=== PATIENT | female | born 1995 | race Caucasian/White ===

== ENCOUNTER 2022-09-20 10:53 | Emergency (ER) | payer MEDICAID, SELFPAY ==
[2022-09-20 12:04] VITALS: BP 114/68; PULSE 69; RESP 16; TEMP 36.6; O2SAT 100; BMI 26.2
[2022-09-20 13:27] LABS: MANUAL DIFF FLAG NO
[2022-09-20 13:29] LABS: Hematocrit 42.8 % (37.0-47.0); Hemoglobin 13.4 g/dl (12.0-16.0); Imm Gran Pct Auto 0.3 % (0.0-0.4); Lymphocytes Percent Auto 27.4 % (20-40); Mean Corpuscular HGB Conc 31.3 g/dl (31.0-35.0); Mean Corpuscular Hemoglobin 26.3 pg (27.0-33.0); Mean Corpuscular Volume 83.9 fL (80.0-98.0); Mean Platelet Volume 10.6 fL (9.4-12.3); Neutrophils Percent Auto 60.3 % (45-73); Platelet Count 342 X10*3/uL (160-400); Red Cell Distribution Width 13.2 % (11.0-16.0); White Blood Count 9.5 X10*3/uL (4.8-10.8)
[2022-09-20 13:30] LABS: Basophils Absolute Auto 0.1 X10*3/uL (0.0-0.2); Basophils Percent Auto 0.6 % (0-2); Eosinophils Absolute Auto 0.3 X10*3/uL (0.0-0.4); Eosinophils Percent Auto 3.1 % (0-4); Imm Gran Abs Auto 0.03 X10*3/uL (0.00-0.03); Lymphocytes Absolute Auto 2.6 X10*3/uL (1.2-4.9); Monocytes Absolute Auto 0.8 X10*3/uL (0.1-1.2); Monocytes Percent Auto 8.3 % (2-11); Neutrophils Absolute Auto 5.7 x10*3/uL (2.0-8.3)
[2022-09-20 13:44] LABS: COVID-19 Test Negative (Negative); IDNOW Serial# 55D5AD1C
[2022-09-20 13:57] LABS: Alanine Aminotransferase 22 U/L (0-31); Albumin Level 4.4 g/dL (3.5-5.0); Alkaline Phosphatase 85 U/L (39-117); Anion Gap 13 (12-20); Aspartate Amino Transferase 17 U/L (5-31); Bilirubin Total 0.4 mg/dL (0.0-1.0); Blood Urea Nitrogen 9 mg/dL (9-16); Calcium 9.4 mg/dL (8.4-10.2); Carbon Dioxide 25 mmol/L (22-29); Chloride 108 mmol/L (96-108); Creatinine Clr Calc Pharmacy 104.6; Estimated Glomerular Filt Rate > 60; Glucose Random 91 mg/dL (60-115); Lipase 27 U/L (8-78); Potassium 4.4 mmol/L (3.3-5.1); Sodium 142 mmol/L (135-145); Total Protein 7.1 g/dL (6.5-8.0)
--- OUTSIDE RECORDS SUMMARY | 2022-09-20 19:47 | XMS_ITS | Continuity of Care Document ---
:1995 Author Organization [facility] Address [address] [place] [id number]- Care Team Providers Name Role Phone Not on Staff, PCP Primary Care Physician Unavailable Encounter [facility] [place] Date(s): 10/27/21 - 11/26/[address] [address] Allergies, Adverse Reactions, Alerts Substance Reaction Severity Status NKA Active Immunizations Given and Recorded Vaccine Date Status Refusal Reason tetanus/diphtheria/pertussis, acel(Tdap) 12/15/14 Given Medications ferrous sulfate 325 mg oral tablet 1 tablet = 325 mg, By Mouth, 2 times a day, # 60 tablet, 2 Refills, Maintenance, 05/10/17 9:06:42, Tablet Start Date: 05/10/17 Stop Date: 08/08/17 Status: OrderedInjectafer = 750 mg, IV Infusion, IRON INFUSIONS Given by hematology, 0 Refills, Maintenance, 01/07/18 10:48:36 Start Date: 01/07/18 Status: Ordered Problem List Condition Effective Dates Status Health Status Informant 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
--- OUTSIDE RECORDS SUMMARY | 2022-09-20 19:47 | XMS_ITS | Continuity of Care Document ---
:1995 Author Organization [facility] Address [address] [place] [address]- Care Team Providers Name Role Phone Not on Staff, PCP Primary Care Physician Unavailable Encounter [facility] Date(s): 01/23/22 - 02/22/[address] [address]- Attending Physician: Carlos Enrique Wolfe Admitting Physician: Carlos Enrique Wolfe Referring Physician: AdmtrCarlos Enrique Allergies, Adverse Reactions, Alerts No Known Allergies Immunizations Given and Recorded Vaccine Date Status [...]
--- OUTSIDE RECORDS SUMMARY | 2022-09-20 19:47 | XMS_ITS | Continuity of Care Document ---
:1995 Author Organization [facility] Address [address] [place] [address]- Care Team Providers Name Role Phone Not on Staff, PCP Primary Care Physician Unavailable Encounter [facility] [place] Date(s): 12/05/21 - 06/26/22 [facility] [address] [place] [address]- Discharge Disposition: A-D/C Home Attending Physician: Jaky Wilson MD Admitting Physician: Jaky Wilson MD Referring Physician: Ana Rutherford MD Allergies, Adverse Reactions, Alerts No Known Allergies Immunizations Given and Recorded Vaccine Date Status Refusal Reason Human Papillomavirus Vaccine 04/03/22 Given tetanus/diphtheria/pertussis, acel(Tdap) 12/15/14 Given Medications Injectafer = 750 mg, IV Infusion, IRON INFUSIONS Given by hematology, 0 Refills, Maintenance, 01/07/18 10:48:36 Start Date: 01/07/18 Status: Ordered Problem List Condition Effective Dates Status Health Status Informant JOE III (cervical intraepithelial Active neoplasia III)(Confirmed) S/P tubal ligation(Confirmed) Active Iron deficiency anemia(Confirmed) Active Vital Signs Most recent to oldest [Reference Range]: 1 2 Height 151 cm 151 cm (03/06/22 10:34 AM) (12/06/21 8:54 AM) Weight 65.5 kg 66.3 kg (03/06/22 10:34 AM) (12/06/21 8:54 AM) Pulse Rate [55-90 bpm] 68 bpm 81 bpm (03/06/22 10:34 AM) (12/06/21 8:54 AM) Body Mass Index [18.5-24.99] 28.73 29.08 *H* *H* (03/06/22 10:34 AM) (12/06/21 8:54 AM) Blood Pressure [90-138/55-84 mm Hg] 108/65 mm Hg 120/ 68 mm Hg (03/06/22 10:34 AM) (12/06/21 8:54 AM) Temperature [96.8-100.4 DegF] 96.7 DegF 98.3 DegF *L* (12/06/21 8:54 AM) (03/06/22 10:34 AM) Blood pressure sites Arm, left Arm, right (03/06/22 10:34 AM) (12/06/21 8:54 AM) Temperature Route Temporal Temporal (03/06/22 10:34 AM) (12/06/21 8:54 AM) Dry Weight 65.5 kg 66.3 kg (03/06/22 10:34 AM) (12/06/21 8:54 AM) Weight Obtained Via Standing scale Standing scale (03/06/22 10:34 AM) (12/06/21 8:54 AM) Dry Weight Obtained Via Standing scale Standing scale (03/06/22 10:34 AM) (12/06/21 8:54 AM) Social History Social History Type Response Smoking Status Never smoker entered on: 02/03/15 Sex
--- OUTSIDE RECORDS SUMMARY | 2022-09-20 19:47 | XMS_ITS | Continuity of Care Document ---
:1995 Author Organization [facility] Address [address] [place] [address]- Care Team Providers Name Role Phone Not on Staff, PCP Primary Care Physician Unavailable Encounter [facility] Date(s): 12/05/21 - 01/04/22 [facility] [address] [place] [address] Attending Physician: Carlos Enrique Wolfe Admitting Physician: Carlos Enrique Wolfe Referring Physician: trCarlos Enrique Allergies, Adverse Reactions, Alerts No Known [...]
--- OUTSIDE RECORDS SUMMARY | 2022-09-20 19:47 | XMS_ITS | Continuity of Care Document ---
:1995 Author Organization [facility] Address [address] [place] [address]- Care Team Providers Name Role Phone Not on Staff, PCP Primary Care Physician Unavailable Encounter [facility] Date(s): 04/03/22 - 05/03/[address] [address] Attending Physician: Carlos Enrique Wolfe Admitting Physician: [...]
--- OUTSIDE RECORDS SUMMARY | 2022-09-20 19:47 | XMS_ITS ---
:1995 Author Care Team Providers Name Role Phone TRACIE PENA MD Referring Provider [phone] BRUNO PACHECO CN ([facility]) Primary Care P rovider [phone] GAIL ECHAVARRIA MD OTHER [phone] Allergies Code Code System Name Reaction Severity Status Onset NKDA ? Medications Name Status Start Date Stop Date ? ? iron Active ? Not available Vitamin Active ? Not available Problems Name Status Onset Date Source ? Hereditary Disease in Family Possibly Affecting Fetus Active ? Encounter Known or Suspected Abnormality Affecting Management of Act michele ? Encounter Mother Procedures None recorded. Results Lab Results None recorded. Past Encounters None recorded. Social History Tobacco Smoking Status Never Smoker Vaccine List None recorded. Plan of Care Reminders Provider Appointments None recorded. ? ? Lab None recorded. ? ? Referral None recorded. ? ? Procedures None recorded. ? ? Surgeries None recorded. ? ? Imaging None recorded. ? ? Vitals None recorded.
--- OUTSIDE RECORDS SUMMARY | 2022-09-20 19:47 | XMS_ITS | Continuity of Care Document ---
:1995 Author Organization [facility] Address [address] [place] [address]- Care Team Providers Name Role Phone Not on Staff, PCP Primary Care Physician Unavailable Encounter [facility] Date(s): 12/29/21 - 02/22/[address] [address]- Attending Physician: Not on Staff, Attending MD Allergies, Adverse Reactions, Alerts No Known [...]
--- OUTSIDE RECORDS SUMMARY | 2022-09-20 19:47 | XMS_ITS | Continuity of Care Document ---
:1995 Author Organization [facility] Address [address] [place] [address]- Care Team Providers Name Role Phone Not on Staff, PCP Primary Care Physician Unavailable Encounter [facility] Date(s): 11/16/21 - 01/04/[address] [address]- Attending Physician: Not on Staff, Attending MD [...]
== END 2022-09-20 20:05 | disposition left against medical advice (07) ==
PROVIDERS: Emergency Provider Emergency Medicine
DX: R05.9 Cough, unspecified (principal); R50.9 Fever, unspecified; Z79.899 Other long term (current) drug therapy; Z20.822 Contact with and (suspected) exposure to COVID-19
CPT/HCPCS: 36415; 80053; 83690; 85025; 87635; 99281; 99283

== ENCOUNTER 2022-09-29 12:51 | Emergency (ER) | payer MEDICAID, SELFPAY ==
--- NOTE | ~2022-09-29 | CT_ITS ---
EXAMINATION: CT HEAD WITHOUT CONTRAST CLINICAL INFORMATION: Left-sided headache after head strike. COMPARISON: None TECHNIQUE: Contiguous axial imaging was performed from the skull base to vertex without intravenous administration of contrast. Coronal and sagittal reformatted images were obtained. This CT examination was performed using dose optimization techniques as appropriate, variously including the following: *Automated exposure control *Adjustment of mA and/or kV according to patient size (this includes techniques or standardized protocols for targeted exams where dose is matched to indication/reason for exam; i.e. extremities or head) *Use of iterative reconstruction technique DLP: 650 mGy-cm FINDINGS: The cortical sulci are normal. The lateral ventricles are symmetrical. The third and fourth ventricles are in their normal midline position. The basilar and prepontine cisterns are unremarkable. There is no acute intra or extracerebral abnormality. There is no mass effect or midline shift. Sections through the bony calvarium are unremarkable. The paranasal sinuses show mild mucosal thickening in the right sphenoid sinus. The bony orbits and orbital contents are unremarkable. CT/CT head/brain wo IV con IMPRESSION: No acute intracranial pathology.
[2022-09-29 13:00] VITALS: BP 100/61; PULSE 64; RESP 16; TEMP 36.7; O2SAT 100
[2022-09-29 13:03] VITALS: BP 100/61; BP 102/74; PULSE 58; PULSE 73; RESP 16; TEMP 36.7; O2SAT 98; BMI 25.4
[2022-09-29 13:08] LABS: Glucose, Whole Blood 66 mg/dL (60-115)
--- NOTE | 2022-09-29 13:19 | ED.SYNCOPE ---
HPI - Syncope General Chief Complaint: Syncope <Tana TannerMARY - Last Filed: 09/29/22 16:22> Stated Complaint: syncopal episode <Tana TannerMARY - Last Filed: 09/29/22 16:22> Time Seen by Provider: 09/29/22 13:07 <Tana ValadezMARY cherry - Last Filed: 09/29/22 16:22> Source: patient <Tana TannerMARY - Last Filed: 09/29/22 16:22> Mode of arrival: EMS <Tana TannerMARY - Last Filed: 09/29/22 16:22> Limitations: no limitations <Tana TannerMARY - Last Filed: 09/29/22 16:22> History of Present Illness HPI narrative: Patient is a 27-year-old female with a past medical history of anemia who presents to the ED today via EMS for syncopal episode. She states she was standing in line at a restaurant waiting to order food when she was beginning to feel slightly dizzy and lightheaded. When standing at the counter a few minutes later she suddenly developed palpitations and became very diaphoretic then lost consciousness. She reports awaking on the floor surrounded by witnesses who state she was unconscious for about 10 seconds and that she hit the left side of her head when she fell. EMS was then called and patient was transported here. Currently she complains of a left-sided headache and some dizziness. She denies a previous history of syncopal episode in the past or history of seizure disorder. Of note, she does report that she had not eaten yet for the day prior to this episode. She denies any fevers, chills, visual changes, current palpitations, chest pain, N/V/D, urinary incontinence, and weakness. She reports no recent illness aside from testing positive for COVID last month. <Tana ValadezMARY cherry - Last Filed: 09/29/22 16:22> Related Data Allergies/Adverse Reactions: Allergies Allergy/AdvReac Type Severity Reaction Status Date / Time No Known Allergies Allergy Verified 09/20/22 12:04 [No Known Allergies*] <Tana Simmonsarianna Tanner CNP - Last Filed: 09/29/22 16:22> Review of Systems Review of Systems: Constitutional : Positive syncope. No Fever, No Chills, No Fatigue ENT/Mouth : No sore throat, No Rhinorrhea Eyes: No Eye Pain, No Swelling, No Redness Cardiovascular : No Chest Pain, No SOB, No Dyspnea on Exertion Respiratory : No Cough, No Sputum Gastrointestinal : No Nausea, No Vomiting, No Diarrhea, No abdominal Pain Genitourinary : No Dysuria, No Urinary Frequency, No Hematuria, Musculoskeletal : No joint pain, No Myalgias, No Joint Swelling Skin : No Skin Lesions, No rash Neuro : Positive headache, Positive dizziness. No Weakness, No Numbness. Psych : No Anxiety/Panic, No Depression Heme/Lymph: No Bruising, No Bleeding, No Lymphadenopathy Endocrine : No Polyuria, No Polydipsia <Tana Tanner CNP - Last Filed: 09/29/22 16:22> Yes all other systems are reviewed and are negative <Tana Tanner CNP - Last Filed: 09/29/22 16:22> [facility] Past Medical History Attestation statement: The following information was validated with the patient. <Tana Tanner CNP - Last Filed: 09/29/22 16:22> Social History Social History: Social History Advance Directives: No Advance Directives Information Provided: No <Tana Tanner CNP - Last Filed: 09/29/22 16:22> Physical Exam Vital Signs: Vital Signs: Last Vital Signs Temp 98.0 F 09/29/22 13:03 Pulse 67 09/29/22 14:20 Resp 16 09/29/22 13:03 BP 107/64 09/29/22 14:20 Pulse Ox 98 09/29/22 13:03 O2 Del Method 09/29/22 13:03 BMI result Body Mass Index 25.4 Vital signs have been reviewed as normal and appeared to be correct. Blood pressure normal.? Heart rate normal.? Respiration rate normal. Temperature normal.? Oxygen saturation normal. <Tana Tanner CNP - Last Filed: 09/29/22 16:22> Vital Signs: Last Vital Signs Temp 98.0 F 09/29/22 13:03 Pulse 67 09/29/22 14:20 Resp 16 09/29/22 13:03 BP 107/64 09/29/22 14:20 Pulse Ox 98 09/29/22 13:03 O2 Del Method 09/29/22 13:03 BMI result Body Mass Index 25.4 <Josie Londono NP - Last Filed: 09/29/22 17:42> Appearance: Alert.?Oriented to person, place and time. No acute distress.?Normal affect. Head: Normocephalic, atraumatic. No head tenderness.? Eyes: Sclera white, conjunctiva pink. PERRL, 3 mm bilaterally. Visual lemus full to confrontation, EOMi. Patient endorses some mild exacerbation of dizziness during performance of EOMs.?No Nystagmus. Ears: Bilateral ear canals clear, TM visible with good cone of light.? Nose: Nasal mucosa pink and moist with midline septum, nares patent bilaterally.? Mouth/ Throat: Oral mucosa pink and moist without lesions. Pharynx normal Neck: Normal inspection.? Neck supple.?? CVS: Heart sounds normal. Normal heart rate and rhythm.? Pulses normal.?? Respiratory: No respiratory distress.? Lung sounds clear to auscultation bilaterally?? Abdomen: Soft and non-tender. Normoactive bowel sounds. No pulsatile mass.?? Skin: Skin warm and dry.? Normal skin color.? Normal skin turgor.?? Extremities: No lower extremity edema. Neuro: No focal neurological deficit observed, CN II-XII intact, normal sensory observed, normal coordination observed. Level of consciousness: Appropriate for age. Motor strength: right upper extremity 5 /5, left upper extremity 5 /5, right lower extremity 5 /5, left lower extremity 5 /5.?Speech: Normal, Gait: Normal, Qxlrug-[id number] test: Normal, Xdho-vd-drgd test: Normal. <Tana Tanner CNP - Last Filed: 09/29/22 16:22> Course Course Course Narrative: Patient is a 27-year-old female with a past medical history of anemia presents to the ED today via EMS for syncopal episode. Patient endorse some exacerbation of dizziness when EOMs were performed, exam otherwise benign. No focal neuro deficits. Nurse performed POC upon patient arrival which was 66. Patient placed on tele monitoring, currently NSR at 73 bpm. Will obtain CBC, CMP, Mg, troponin and EKG, UA, hCG, COVID. Will obtain head CT due to new episode of syncope and positive head strike. Orthostatics ordered. Fluid bolus of NS to be given once orthostatics are assessed. <Tana Tanner CNP - Last Filed: 09/29/22 16:22> Reevaluation(s) Reevaluation #1: Orthostatic vital signs within normal limits. Troponin <3.5, EKG reveals normal sinus rhythm with an incomplete right bundle-branch block which has been seen on prior EKG in 2019, no acute ischemic findings, is not appear consistent with ACS. She has no tachycardia, hypoxia, or tachypnea, PERC negative, unlikely pulmonary embolism, no prior DVT/PE, personal history of cancer, no anticoagulant usage, no tachycardia tachypnea or hypoxia. At this time patient was able to ambulate with slow steady gait to the restroom without assistance. CT of the head remains pending at this time. Patient signed out to Evelia Londono NP <Tana Tanner CNP - Last Filed: 09/29/22 16:22> Time: 16:03 <Tana Tanner CNP - Last Filed: 09/29/22 16:22> Reevaluation #2: CT scan of head negative for acute findings requiring emergent intervention. Plan of care is to discharge home and have outpatient follow-up with primary care provider as needed. <Josie Londono NP - Last Filed: 09/29/22 17:42> Time: 17:40 <Josie Londono NP - Last Filed: 09/29/22 17:42> MDM - Syncope Medical Records Attestation: I reviewed the patient's medical records. <Tana Tanner CNP - Last Filed: 09/29/22 16:22> Lab Data Attestation: I reviewed the patient's lab results. <Tana Tanner CNP - Last Filed: 09/29/22 16:22> Result diagrams: : 09/29/22 14:28 09/29/22 14:28 <Tana Tanner CNP - Last Filed: 09/29/22 16:22> Labs: Lab Results 09/29/22 09/29/22 09/29/22 Range/Units 13:04 14:28 14:28 WBC 12.9 H (4.8-10.8) X10*3/uL RBC 4.92 (4.20-5.50) X10*6/uL Hgb 13.1 (12.0-16.0) g/dl Hct 40.6 (37.0-47.0) % MCV 82.5 (80.0-98.0) fL MCH 26.6 L (27.0-33.0) pg MCHC 32.3 (31.0-35.0) g/dl RDW 13.3 (11.0-16.0) % Plt Count 303 (160-400) X10*3/uL MPV 11.1 (9.4-12.3) fL Immature Gran % (Auto) 0.3 (0.0-0.4) % Neut % (Auto) 80.1 H (45-73) % Lymph % (Auto) 13.2 L (20-40) % [place] % (Auto) 5.2 (2-11) % Eos % (Auto) 0.9 (0-4) % Baso % (Auto) 0.3 (0-2) % Lymph # (Auto) 1.7 (1.2-4.9) X10*3/uL [place] # (Auto) 0.7 (0.1-1.2) X10*3/uL Eos # (Auto) 0.1 (0.0-0.4) X10*3/uL Baso # (Auto) 0.0 (0.0-0.2) X10*3/uL Abs Immat Gran (auto) 0.04 H (0.00-0.03) X10*3/uL Absolute Neuts (auto) 10.3 H (2.0-8.3) x10*3/uL Absolute Nucleated RBC 0.000 (0.0-0.012) X10*3/uL Nucleated RBC % (auto) 0.0 (0.0-0.2) /100WBC Sodium 140 (135-145) mmol/L Potassium 4.2 (3.3-5.1) mmol/L Chloride 106 (96-108) mmol/L Carbon Dioxide 23 (22-29) mmol/L Anion Gap 15 (12-20) BUN 10 (9-16) mg/dL Creatinine 0.63 (0.5-1.4) mg/dL Estim Creat Clear Calc 101.4 Estimated GFR > 60 POC Glucose 66 (60-115) mg/dL Random Glucose 82 (60-115) mg/dL Calcium 9.5 (8.4-10.2) mg/dL Magnesium 2.1 (1.6-2.6) mg/dL Total Bilirubin 1.2 H (0.0-1.0) mg/dL AST 16 (5-31) U/L ALT 15 (0-31) U/L Alkaline Phosphatase 84 (39-117) U/L Troponin I High Sens (<3.5-17.0) ng/L Total Protein 7.3 (6.5-8.0) g/dL Albumin 4.5 (3.5-5.0) g/dL Beta HCG, Quant < 2 mIU/mL Urine Color Urine Appearance Urine pH (5.0-9.0) Ur Specific [place] (1.005-1.025) Urine Protein (Neg-Trace) mg/dL Urine Glucose (UA) (Negative) mg/dL Urine Ketones (Negative) mg/dL Urine Blood (Negative) Urine Nitrite (Negative) Ur Leukocyte Esterase (Negative) Urine Test (NEGATIVE) COVID-19 (SUE) (Negative) COVID-19 Clin Com 09/29/22 09/29/22 09/29/22 Range/Units 14:28 14:33 15:59 WBC (4.8-10.8) X10*3/uL RBC (4.20-5.50) X10*6/uL Hgb (12.0-16.0) g/dl Hct (37.0-47.0) % MCV (80.0-98.0) fL MCH (27.0-33.0) pg MCHC (31.0-35.0) g/dl RDW (11.0-16.0) % Plt Count (160-400) X10*3/uL MPV (9.4-12.3) fL Immature Gran % (Auto) (0.0-0.4) % Neut % (Auto) (45-73) % Lymph % (Auto) (20-40) % [place] % (Auto) (2-11) % Eos % (Auto) (0-4) % Baso % (Auto) (0-2) % Lymph # (Auto) (1.2-4.9) X10*3/uL [place] # (Auto) (0.1-1.2) X10*3/uL Eos # (Auto) (0.0-0.4) X10*3/uL Baso # (Auto) (0.0-0.2) X10*3/uL Abs Immat Gran (auto) (0.00-0.03) X10*3/uL Absolute Neuts (auto) (2.0-8.3) x10*3/uL Absolute Nucleated RBC (0.0-0.012) X10*3/uL Nucleated RBC % (auto) (0.0-0.2) /100WBC Sodium (135-145) mmol/L Potassium (3.3-5.1) mmol/L Chloride (96-108) mmol/L Carbon Dioxide (22-29) mmol/L Anion Gap (12-20) BUN (9-16) mg/dL Creatinine (0.5-1.4) mg/dL Estim Creat Clear Calc Estimated GFR POC Glucose (60-115) mg/dL Random Glucose (60-115) mg/dL Calcium (8.4-10.2) mg/dL Magnesium (1.6-2.6) mg/dL Total Bilirubin (0.0-1.0) mg/dL AST (5-31) U/L ALT (0-31) U/L Alkaline Phosphatase (39-117) U/L Troponin I High Sens < 3.5 (<3.5-17.0) ng/L Total Protein (6.5-8.0) g/dL Albumin (3.5-5.0) g/dL Beta HCG, Quant mIU/mL Urine Color Yellow Urine Appearance Clear Urine pH 7.0 (5.0-9.0) Ur Specific [place] 1.015 (1.005-1.025) Urine Protein Negative (Neg-Trace) mg/dL Urine Glucose (UA) Negative (Negative) mg/dL Urine Ketones 15 (Negative) mg/dL Urine Blood Negative (Negative) Urine Nitrite Negative (Negative) Ur Leukocyte Esterase Negative (Negative) Urine Test (NEGATIVE) COVID-19 (SUE) Negative (Negative) COVID-19 Clin Com See Note 09/29/22 Range/Units 15:59 WBC (4.8-10.8) X10*3/uL RBC (4.20-5.50) X10*6/uL Hgb (12.0-16.0) g/dl Hct (37.0-47.0) % MCV (80.0-98.0) fL MCH (27.0-33.0) pg MCHC (31.0-35.0) g/dl RDW (11.0-16.0) % Plt Count (160-400) X10*3/uL MPV (9.4-12.3) fL Immature Gran % (Auto) (0.0-0.4) % Neut % (Auto) (45-73) % Lymph % (Auto) (20-40) % [place] % (Auto) (2-11) % Eos % (Auto) (0-4) % Baso % (Auto) (0-2) % Lymph # (Auto) (1.2-4.9) X10*3/uL [place] # (Auto) (0.1-1.2) X10*3/uL Eos # (Auto) (0.0-0.4) X10*3/uL Baso # (Auto) (0.0-0.2) X10*3/uL Abs Immat Gran (auto) (0.00-0.03) X10*3/uL Absolute Neuts (auto) (2.0-8.3) x10*3/uL Absolute Nucleated RBC (0.0-0.012) X10*3/uL Nucleated RBC % (auto) (0.0-0.2) /100WBC Sodium (135-145) mmol/L Potassium (3.3-5.1) mmol/L Chloride (96-108) mmol/L Carbon Dioxide (22-29) mmol/L Anion Gap (12-20) BUN (9-16) mg/dL Creatinine (0.5-1.4) mg/dL Estim Creat Clear Calc Estimated GFR POC Glucose (60-115) mg/dL Random Glucose (60-115) mg/dL Calcium (8.4-10.2) mg/dL Magnesium (1.6-2.6) mg/dL Total Bilirubin (0.0-1.0) mg/dL AST (5-31) U/L ALT (0-31) U/L Alkaline Phosphatase (39-117) U/L Troponin I High Sens (<3.5-17.0) ng/L Total Protein (6.5-8.0) g/dL Albumin (3.5-5.0) g/dL Beta HCG, Quant mIU/mL Urine Color Urine Appearance Urine pH (5.0-9.0) Ur Specific [place] (1.005-1.025) Urine Protein (Neg-Trace) mg/dL Urine Glucose (UA) (Negative) mg/dL Urine Ketones (Negative) mg/dL Urine Blood (Negative) Urine Nitrite (Negative) Ur Leukocyte Esterase (Negative) Urine Test NEGATIVE (NEGATIVE) COVID-19 (SUE) (Negative) COVID-19 Clin Com <Tana Tanner CNP - Last Filed: 09/29/22 16:22> Lab Results 09/29/22 09/29/22 09/29/22 Range/Units 13:04 14:28 14:28 WBC 12.9 H (4.8-10.8) X10*3/uL RBC 4.92 (4.20-5.50) X10*6/uL Hgb 13.1 (12.0-16.0) g/dl Hct 40.6 (37.0-47.0) % MCV 82.5 (80.0-98.0) fL MCH 26.6 L (27.0-33.0) pg MCHC 32.3 (31.0-35.0) g/dl RDW 13.3 (11.0-16.0) % Plt Count 303 (160-400) X10*3/uL MPV 11.1 (9.4-12.3) fL Immature Gran % (Auto) 0.3 (0.0-0.4) % Neut % (Auto) 80.1 H (45-73) % Lymph % (Auto) 13.2 L (20-40) % [place] % (Auto) 5.2 (2-11) % Eos % (Auto) 0.9 (0-4) % Baso % (Auto) 0.3 (0-2) % Lymph # (Auto) 1.7 (1.2-4.9) X10*3/uL [place] # (Auto) 0.7 (0.1-1.2) X10*3/uL Eos # (Auto) 0.1 (0.0-0.4) X10*3/uL Baso # (Auto) 0.0 (0.0-0.2) X10*3/uL Abs Immat Gran (auto) 0.04 H (0.00-0.03) X10*3/uL Absolute Neuts (auto) 10.3 H (2.0-8.3) x10*3/uL Absolute Nucleated RBC 0.000 (0.0-0.012) X10*3/uL Nucleated RBC % (auto) 0.0 (0.0-0.2) /100WBC Sodium 140 (135-145) mmol/L Potassium 4.2 (3.3-5.1) mmol/L Chloride 106 (96-108) mmol/L Carbon Dioxide 23 (22-29) mmol/L Anion Gap 15 (12-20) BUN 10 (9-16) mg/dL Creatinine 0.63 (0.5-1.4) mg/dL Estim Creat Clear Calc 101.4 Estimated GFR > 60 POC Glucose 66 (60-115) mg/dL Random Glucose 82 (60-115) mg/dL Calcium 9.5 (8.4-10.2) mg/dL Magnesium 2.1 (1.6-2.6) mg/dL Total Bilirubin 1.2 H (0.0-1.0) mg/dL AST 16 (5-31) U/L ALT 15 (0-31) U/L Alkaline Phosphatase 84 (39-117) U/L Troponin I High Sens (<3.5-17.0) ng/L Total Protein 7.3 (6.5-8.0) g/dL Albumin 4.5 (3.5-5.0) g/dL Beta HCG, Quant < 2 mIU/mL Urine Color Urine Appearance Urine pH (5.0-9.0) Ur Specific [place] (1.005-1.025) Urine Protein (Neg-Trace) mg/dL Urine Glucose (UA) (Negative) mg/dL Urine Ketones (Negative) mg/dL Urine Blood (Negative) Urine Nitrite (Negative) Ur Leukocyte Esterase (Negative) Urine Test (NEGATIVE) COVID-19 (SUE) (Negative) COVID-19 Clin Com 09/29/22 09/29/22 09/29/22 Range/Units 14:28 14:33 15:59 WBC (4.8-10.8) X10*3/uL RBC (4.20-5.50) X10*6/uL Hgb (12.0-16.0) g/dl Hct (37.0-47.0) % MCV (80.0-98.0) fL MCH (27.0-33.0) pg MCHC (31.0-35.0) g/dl RDW (11.0-16.0) % Plt Count (160-400) X10*3/uL MPV (9.4-12.3) fL Immature Gran % (Auto) (0.0-0.4) % Neut % (Auto) (45-73) % Lymph % (Auto) (20-40) % [place] % (Auto) (2-11) % Eos % (Auto) (0-4) % Baso % (Auto) (0-2) % Lymph # (Auto) (1.2-4.9) X10*3/uL [place] # (Auto) (0.1-1.2) X10*3/uL Eos # (Auto) (0.0-0.4) X10*3/uL Baso # (Auto) (0.0-0.2) X10*3/uL Abs Immat Gran (auto) (0.00-0.03) X10*3/uL Absolute Neuts (auto) (2.0-8.3) x10*3/uL Absolute Nucleated RBC (0.0-0.012) X10*3/uL Nucleated RBC % (auto) (0.0-0.2) /100WBC Sodium (135-145) mmol/L Potassium (3.3-5.1) mmol/L Chloride (96-108) mmol/L Carbon Dioxide (22-29) mmol/L Anion Gap (12-20) BUN (9-16) mg/dL Creatinine (0.5-1.4) mg/dL Estim Creat Clear Calc Estimated GFR POC Glucose (60-115) mg/dL Random Glucose (60-115) mg/dL Calcium (8.4-10.2) mg/dL Magnesium (1.6-2.6) mg/dL Total Bilirubin (0.0-1.0) mg/dL AST (5-31) U/L ALT (0-31) U/L Alkaline Phosphatase (39-117) U/L Troponin I High Sens < 3.5 (<3.5-17.0) ng/L Total Protein (6.5-8.0) g/dL Albumin (3.5-5.0) g/dL Beta HCG, Quant mIU/mL Urine Color Yellow Urine Appearance Clear Urine pH 7.0 (5.0-9.0) Ur Specific [place] 1.015 (1.005-1.025) Urine Protein Negative (Neg-Trace) mg/dL Urine Glucose (UA) Negative (Negative) mg/dL Urine Ketones 15 (Negative) mg/dL Urine Blood Negative (Negative) Urine Nitrite Negative (Negative) Ur Leukocyte Esterase Negative (Negative) Urine Test (NEGATIVE) COVID-19 (SUE) Negative (Negative) COVID-19 Clin Com See Note 09/29/22 Range/Units 15:59 WBC (4.8-10.8) X10*3/uL RBC (4.20-5.50) X10*6/uL Hgb (12.0-16.0) g/dl Hct (37.0-47.0) % MCV (80.0-98.0) fL MCH (27.0-33.0) pg MCHC (31.0-35.0) g/dl RDW (11.0-16.0) % Plt Count (160-400) X10*3/uL MPV (9.4-12.3) fL Immature Gran % (Auto) (0.0-0.4) % Neut % (Auto) (45-73) % Lymph % (Auto) (20-40) % [place] % (Auto) (2-11) % Eos % (Auto) (0-4) % Baso % (Auto) (0-2) % Lymph # (Auto) (1.2-4.9) X10*3/uL [place] # (Auto) (0.1-1.2) X10*3/uL Eos # (Auto) (0.0-0.4) X10*3/uL Baso # (Auto) (0.0-0.2) X10*3/uL Abs Immat Gran (auto) (0.00-0.03) X10*3/uL Absolute Neuts (auto) (2.0-8.3) x10*3/uL Absolute Nucleated RBC (0.0-0.012) X10*3/uL Nucleated RBC % (auto) (0.0-0.2) /100WBC Sodium (135-145) mmol/L Potassium (3.3-5.1) mmol/L Chloride (96-108) mmol/L Carbon Dioxide (22-29) mmol/L Anion Gap (12-20) BUN (9-16) mg/dL Creatinine (0.5-1.4) mg/dL Estim Creat Clear Calc Estimated GFR POC Glucose (60-115) mg/dL Random Glucose (60-115) mg/dL Calcium (8.4-10.2) mg/dL Magnesium (1.6-2.6) mg/dL Total Bilirubin (0.0-1.0) mg/dL AST (5-31) U/L ALT (0-31) U/L Alkaline Phosphatase (39-117) U/L Troponin I High Sens (<3.5-17.0) ng/L Total Protein (6.5-8.0) g/dL Albumin (3.5-5.0) g/dL Beta HCG, Quant mIU/mL Urine Color Urine Appearance Urine pH (5.0-9.0) Ur Specific [place] (1.005-1.025) Urine Protein (Neg-Trace) mg/dL Urine Glucose (UA) (Negative) mg/dL Urine Ketones (Negative) mg/dL Urine Blood (Negative) Urine Nitrite (Negative) Ur Leukocyte Esterase (Negative) Urine Test NEGATIVE (NEGATIVE) COVID-19 (SUE) (Negative) COVID-19 Clin Com <Josie Londono NP - Last Filed: 09/29/22 17:42> Imaging Data CT scan - head: Attestation: I personally reviewed and interpreted this imaging study as follows: <Josie Londono NP - Last Filed: 09/29/22 17:42> Radiologist's impression: FINDINGS: The cortical sulci are normal. The lateral ventricles are symmetrical. The third and fourth ventricles are in their normal midline position. The basilar and prepontine cisterns are unremarkable. There is no acute intra or extracerebral abnormality. There is no mass effect or midline shift. Sections through the bony calvarium are unremarkable. The paranasal sinuses show mild mucosal thickening in the right sphenoid sinus. The bony orbits and orbital contents are unremarkable. CT/CT head/brain wo IV con IMPRESSION: No acute intracranial pathology. ? <Josie Londono NP - Last Filed: 09/29/22 17:42> ECG Data Attestation: I personally reviewed and interpreted this ECG as follows: <Tana Tanner CNP - Last Filed: 09/29/22 16:22> ECG interpretation date: 09/29/22 <Tana Tanner CNP - Last Filed: 09/29/22 16:22> Prior ECG tracings: available for review <Tana Tanner CNP - Last Filed: 09/29/22 16:22> Interpretation: Rate: 65 Rhythm:? Normal sinus rhythm, incomplete right bundle-branch block which has been seen on prior EKG in 2019 [place]:? Normal Normal P waves.? Normal JUD[place].?? Normal QRS complex.?? ST T wave :??No ST elevation, no ST depression, no T-wave inversion qTC: 426 prior studies:? April 2019 The study has been interpreted contemporaneously by me. <Tana Tanner CNP - Last Filed: 09/29/22 16:22> Discharge Plan Discharge Clinical Impression: Syncope <Tana Tanner CNP - Last Filed: 09/29/22 16:22> Patient Disposition: Home, Self-Care <Tana Tanner CNP - Last Filed: 09/29/22 16:22> Instructions: Syncope (ED) <Tana Tanner CNP - Last Filed: 09/29/22 16:22> Additional Instructions: You were evaluated for syncopal episode. Her lab values are unremarkable. CT scan of head and neck are negative for acute findings requiring emergent intervention. test is negative. Urinalysis negative for UTI. EKG shows normal sinus rhythm. No indication of cardiac event at this time. Your vital signs were stable and within normal limits. It is unknown why you had a syncopal episode. It could possibly be due to poor p.o. intake. Please eat on a regular basis. Drink plenty of fluids. Follow-up with primary care physician this week. Thank you for choosing this emergency department for evaluation. Please follow-up with primary care physician as needed. Return to the emergency department for any new, concerning, or worsening symptoms. <Tana Tanner CNP - Last Filed: 09/29/22 16:22>
--- NOTE | 2022-09-29 13:23 | ECG_ITS ---
Test Reason : SYNCOPE Blood Pressure : / mmHG Vent. Rate : 065 BPM Atrial Rate : 065 BPM P-R Int : 154 ms QRS Dur : 094 ms QT Int : 410 ms P-R-T Axes : 058 081 039 degrees QTc Int : 426 ms Normal sinus rhythm Incomplete right bundle branch block Borderline ECG When compared with ECG of 02-MAY-2019 21:24, Heart rate has decreased Referred By: Tana Tanner Electronically Signed By:ARMEN HUNTER MD
[2022-09-29 14:18] VITALS: BP 107/65; BP 108/66; PULSE 65; PULSE 70
[2022-09-29 14:20] VITALS: BP 107/64; PULSE 67
[2022-09-29 14:33] LABS: MANUAL DIFF FLAG NO
[2022-09-29 14:35] LABS: Basophils Percent Auto 0.3 % (0-2); Eosinophils Absolute Auto 0.1 X10*3/uL (0.0-0.4); Eosinophils Percent Auto 0.9 % (0-4); Hematocrit 40.6 % (37.0-47.0); Hemoglobin 13.1 g/dl (12.0-16.0); Imm Gran Abs Auto 0.04 X10*3/uL (0.00-0.03); Imm Gran Pct Auto 0.3 % (0.0-0.4); Lymphocytes Absolute Auto 1.7 X10*3/uL (1.2-4.9); Lymphocytes Percent Auto 13.2 % (20-40); Mean Corpuscular HGB Conc 32.3 g/dl (31.0-35.0); Mean Corpuscular Hemoglobin 26.6 pg (27.0-33.0); Mean Corpuscular Volume 82.5 fL (80.0-98.0); Mean Platelet Volume 11.1 fL (9.4-12.3); Monocytes Absolute Auto 0.7 X10*3/uL (0.1-1.2); Monocytes Percent Auto 5.2 % (2-11); Neutrophils Absolute Auto 10.3 x10*3/uL (2.0-8.3); Neutrophils Percent Auto 80.1 % (45-73); Platelet Count 303 X10*3/uL (160-400); Red Blood Count 4.92 X10*6/uL (4.20-5.50); Red Cell Distribution Width 13.3 % (11.0-16.0); White Blood Count 12.9 X10*3/uL (4.8-10.8)
[2022-09-29] MEDS: 0.9 % Sodium Chloride 1,000 ML 999 ML IV (14:37)
[2022-09-29 14:52] LABS: COVID-19 Test Negative (Negative)
[2022-09-29 14:57] LABS: Alanine Aminotransferase 15 U/L (0-31); Albumin Level 4.5 g/dL (3.5-5.0); Alkaline Phosphatase 84 U/L (39-117); Anion Gap 15 (12-20); Aspartate Amino Transferase 16 U/L (5-31); Bilirubin Total 1.2 mg/dL (0.0-1.0); Blood Urea Nitrogen 10 mg/dL (9-16); Calcium 9.5 mg/dL (8.4-10.2); Carbon Dioxide 23 mmol/L (22-29); Chloride 106 mmol/L (96-108); Creatinine Clr Calc Pharmacy 101.4; Estimated Glomerular Filt Rate > 60; Glucose Random 82 mg/dL (60-115); Magnesium 2.1 mg/dL (1.6-2.6); Potassium 4.2 mmol/L (3.3-5.1); Sodium 140 mmol/L (135-145); Total Protein 7.3 g/dL (6.5-8.0)
[2022-09-29 15:08] LABS: Troponin-I High Sensitivity < 3.5 ng/L (<3.5-17.0)
[2022-09-29 15:29] LABS: HCG Quantitative < 2 mIU/mL
--- NOTE | 2022-09-29 16:00 | PC.NURSE ---
patient a/ox4 . nathnarla . heart rate regular at 66 beats per minute . lungs clear . breathing even unlabored . skin pink warm and dry . abdomen soft .positive bowel sounds in all four quadrants . ortho static vitals done as ordered . IV fluids started as ordered . urine obtained and sent to lab . patient aware of plan of care .
[2022-09-29 16:05] LABS: Appearance Urine Clear; Color Urine Yellow; Glucose Urine UA Negative (Negative); Leukocyte Esterase Urine Negative (Negative); Nitrite Urine Negative (Negative); Specific Gravity - Urine 1.015 (1.005-1.025); Urine Blood Negative (Negative); Urine Ketones 15 mg/dL (Negative); Urine Protein Negative (Neg-Trace)
[2022-09-29 16:07] LABS: UPreg QC Valid YES; Urine Pregnancy NEGATIVE (NEGATIVE)
== END 2022-09-29 17:53 | disposition home or self-care (01) ==
PROVIDERS: Nurse Practitioner Family; Emergency Provider Emergency Medicine; PCP Family Medicine
DX: R55 Syncope and collapse (principal); Z20.822 Contact with and (suspected) exposure to COVID-19; Z79.899 Other long term (current) drug therapy
CPT/HCPCS: 70450; 80053; 81003; 81025; 82947; 83735; 84484; 84702; 85025; 87635; 93005; 96360; 99284

== ENCOUNTER → 2022-11-13 13:01 | Outpatient (REF) | payer MEDICAID, SELFPAY ==
--- NOTE | 2022-11-13 13:06 | HM_ITS ---
* Total monitoring time approximately 1 day. * Underlying rhythm is sinus. Average ventricular rate 78/Min. Range 50 to 161/Min. About 15% the time, rate > 100/Min. * No significant ectopy or arrhythmias. * No significant pauses or AV blocks. * No patient diary. MTDD
== END ==
LOC: HO.CARD 13:01
PROVIDERS: PCP Family Medicine; Visit Provider Family Medicine
DX: R00.2 Palpitations (principal)
CPT/HCPCS: 93225

== ENCOUNTER 2023-12-12 10:00 | Outpatient (RCR) | payer OTHER, SELFPAY | END 2024-01-11 11:55 | disposition home or self-care (01) | LOC: HO.PT 10:00 | PROVIDERS: PCP Family Medicine; Visit Provider Internal Medicine | DX: S16.1XXD Strain of muscle, fascia and tendon at neck level, subsequent encounter (principal); M54.50 Low back pain, unspecified | CPT/HCPCS: 97110; 97140; 97161; 97530 ==